=== PATIENT | female | born 1965 | race Caucasian/White ===

== ENCOUNTER 2024-03-01 20:43 | Inpatient (IN) | payer MEDICARE, MEDICAID, SELFPAY ==
[2024-03-01 21:00] VITALS: BP 119/67; PULSE 77; RESP 18; TEMP 36.9; O2SAT 99
[2024-03-01 21:49] VITALS: BMI 25.5
--- NOTE | 2024-03-02 01:34 | PC.ADMIT ---
Pt is a 58 yo female admitted to the unit [facility] [facility] [place] via interhospital transfer. Pt arrived on unit at 2100 on 03/01/24. Legal status: 12B. Pt medical issues are asthma, recent RSV infection (dx on 02/22/24) as well as a lingering cough. Pt declined the admission interview, wanting to sleep, so much of admission was done via crisis evaluation. Per crisis evaluation, Pt denies substance, etoh or tobacco use. Pt is a resident in a nursing home. Pt is resistant to change at baseline but is typically a model resident according to programmer developer, Astrid. Pt has a current Jim's order for Invega IM q month and Haldol IM q 2 wks. Recently has been exhibiting behaviors consistent with decompensation. According to Astrid, Pt had been at [facility] for 8 years prior to coming to the nursing home. Pt states that she going to live with her family in [place] however, Astrid states that she has noone in her family in [place]. Pt is paranoid and delusional. Pt was given Haldol 200mg IM on 03/01/2024 at 0930 at [facility]. Last Invega Sustenna IM is unclear but Astrid states that she will consult with RN at nursing home and find out the most recent date. Pt was having SOB and wheezing and brought to [facility] and dx with RSV on 02/22/24. Since return from [facility] to nursing home she has been noncompliant with her meds, both RSV meds and also her Haldol IM (Jim's med) stating, I want off all my meds and this is by [facility] [employer] ! Pt presents as apprehensive and suspicious at times, not responding to questions or very slow to respond. Pt wearing a hospital abby and appears disheveled. Provider promotions producer AA notified of admission and orders obtained. Placed on 5 minute safety checks. Pt reports feeling safe in hospital.
[2024-03-02 08:53] VITALS: RESP 20
--- NOTE | 2024-03-02 09:29 | PHA.MEDREC ---
Pharmacy Consult ? Medication Reconciliation Pharmacy has completed the medication reconciliation. PHARMACY HAS REVIEWED MED REC DONE BY NURSING. PER NOTE ON 03/02 BY RN ENOCH KING Pt was given Haldol 200mg IM on 03/01/2024 at 0930 at [facility]. Last Invega Sustenna IM is unclear but Astrid states that she will consult with RN at skilled nursing and find out the most recent date.
--- NOTE | 2024-03-02 10:41 | HO.PSYADMNOT ---
HPI Date of Service: 03/02/24 Chief Complaint: Psychosis Sources of Information: patient interviewed, chart reviewed and crisis/core team assessment reviewed HPI Subjective Notes: Oneal Warning and Section 12B Narrative: The patient is a 58-year-old female, resident of a snf who carries a diagnosis of schizophrenia on a community court order the for treatment over objection who had been noncompliant with medications for several days. The staff of the snf reported that she had been noncompliant and she had been refusing to take his medications. She was rushed to the emergency room where she receive her court order Haldol and we were waiting for information from the snf when was her last dose of Invega Sustenna. The patient was assessed by crisis and since she has psychotic symptoms elicited by disorganized behavior, paranoia, poor insight and auditory hallucinations was transferring to this facility for psychiatric stabilization. During the nursing assessment, the patient wanted to signed a 3 day notice but she refused to sign a conditional voluntary, very paranoid of signing any papers. The patient has refused her medications in the morning. On the intake interview, the patient refused to engage in the conversation she said that she is doing fine and she needs to go back to her place. No evidence of any insight about her condition. We will try to gather more collateral information since the patient had been a poor historian. Past Psychiatric History: The patient has an extensive history of schizophrenia with several admissions into the hospital, she has [facility] case managing services and she lives in a snf. She has a court order for treatment over objection in the community that has not been on recently and she had been noncompliant with the compensation. Medical Evaluation Reviewed: Hospitalist Vivian Pending [facility] Narrative: Asthma Family History: Refused to elaborate Social History: The patient lives in a snf, she has [facility] case managing services, she has a long history of mental illness. Substance History: Denies Trauma History: Refused to elaborate Diagnostics Vital Signs (24Hr): Vital Signs - 24 hr 03/01/24 21:00 03/02/24 08:53 Temperature 98.4 F Pulse Rate 77 Respiratory Rate 18 20 Blood Pressure 119/67 Pulse Oximetry 99 Oxygen Delivery Method Room Air BMI result Body Mass Index 25.5 Meds/Allergies Meds Home Medications ?Medication ?Instructions ?Recorded ?Confirmed ?Type albuterol sulfate 90 mcg/actuation 1 - 2 puff inhalation Q4-6H PRN 03/01/24 03/01/24 History aerosol inhaler dyspnea guaifenesin 200 mg tablet 400 mg PO Q6H PRN cough 03/01/24 03/01/24 History haloperidol decanoate 100 mg/mL 200 mg IM Q2W 03/01/24 03/01/24 History intramuscular solution paliperidone palmitate 234 mg/1.5 234 mg IM QMONTH 03/01/24 03/01/24 History mL intramuscular syringe (Invega Sustenna) Allergies Allergies Allergy/AdvReac Type Severity Reaction Status Date / Time lamotrigine [From Lamictal] Allergy Unknown Verified 03/01/24 21:10 prednisone Allergy Unknown Verified 03/01/24 21:49 Mental Status Exam Mental Status Exam Patient Appearance: Appropriate Patient Orientation: Person and Situation Level of Consciousness: Awake and Appropriate Patient Behavior: Guarded and Passive Mood Description: Withdrawn Affect Description: Blunted Patient Cognition Impaired: Yes Ability to Follow Directions: Good Speech Pattern: Clear Hallucinations: Auditory Delusions: Paranoid Ideation and Ideas of Reference Thought Process: Illogical, Distracted and Slowed Thinking Thought Content: positive for [place] and positive for Poverty of Content Judgement: Poor Assessment & Plan Assessment & Plan (1) Schizophrenia: Status: Acute Code(s): F20.9 - Schizophrenia, unspecified Plan The patient is a middle-aged female with a long history of schizophrenia, with several services provided by [facility] such as snf and other case managing services who had been noncompliant of her court-ordered treatment over objection. The patient had been noncompliant of medications for several days and she had decompensated we disorganized behavior, paranoia and inability to take care of herself. She was assessed by crisis and transferring to this facility for continuation of care. The patient is a very poor historian unable to provide more details. Plan 1. Gather collateral information. 2. The patient is on a Section 12 she has refused to sign a conditional voluntary. 3. 15 minute checks. 4. Continue with medications as per court order. 4. Hospitalist consult and reassessment with results Patient educated on: diagnosis, therapeutic strategies and medical condition Reason for continued inpatient stay Substantial Risk for: inability to function, rapid decompensation and med/psych decompensation Statement Statement: I have reviewed the history and physical and performed a pertinent examination on my patient. No changes have occurred unless specified. If the History and Physical was not performed prior to admission, the Hospitalist's service will be consulted for completing the admission physical. Time Spent With Patient Time: Total time managing care of this patient today __20__ minutes.
--- NOTE | 2024-03-02 11:33 | HO.PM.IMCN ---
History of Present Illness Data of Consult Service Date: 03/02/24 Primary Care Provider: Unknown Physician HPI Reason for consult: Admission H&P Pt is a 58-year-old female with a PMH significant for? who is admitted to M3 psychiatry unit for . Medical consult for admission H&P. ? Labs reviewed, significant for PMFSH Social History Household Members: Other Household Members Other:: Correction Housing: Other Housing Other:: Correction Do you presently have visiting nurse or other home services: Yes Patient Tobacco Use Status: Never used Tobacco Use of substances other than those prescribed or required for medical reasons: No Advance Directives: No Advance Directives Information Provided: No Do you have a plan to hurt others: No Plan Recently lost weight without trying: No How much weight loss: Not applicable Eating poorly because of decreased appetite: No Nutrition screen score: 0 Nutrition Risks: No Nutritional Risk Patient : No : No Meds Allergies Allergy/AdvReac Type Severity Reaction Status Date / Time lamotrigine [From Lamictal] Allergy Unknown Verified 03/01/24 21:10 prednisone Allergy Unknown Verified 03/01/24 21:49 Active Medications: Current Medications Acetaminophen (Acetaminophen 325 Mg Tablet) 650 mg PO Q6H PRN PRN Reason: Headache/Pain Mild Scale (1-3) Al Hydroxide/Mg Hydroxide (Magnesium Hydrox/Alum Hydrox 30 Ml Oral.Susp) 30 ml PO Q6H PRN PRN Reason: Heartburn/Nausea Albuterol Sulfate (Albuterol Sulfate 90 Mcg 8 Gm Inhaler) 1 - 2 puff INHALE Q4H PRN PRN Reason: dyspnea Guaifenesin (Guaifenesin 200 Mg/10 Ml 10 Ml Liquid) 10 ml PO Q6H PRN PRN Reason: cough Hydroxyzine HCl (Hydroxyzine Hcl 25 Mg Tablet) 25 mg PO Q6H PRN PRN Reason: Anxiety Magnesium Hydroxide (Milk Of Magnesia 30 Ml Oral.Susp) 30 ml PO DAILY PRN PRN Reason: Constipation Nicotine Polacrilex (Nicotine Polacrilex 2 Mg Gum) 2 mg BUCCAL Q2H PRN PRN Reason: Nicotine Cravings Trazodone HCl (Trazodone Hcl 50 Mg Tablet) 50 mg PO BEDTIME MRX1 PRN PRN Reason: Insomnia Home Medications ?Medication ?Instructions ?Recorded ?Confirmed ?Last Taken ?Type albuterol sulfate 90 mcg/actuation 1 - 2 puff inhalation Q4-6H PRN 03/01/24 03/01/24 Unknown History aerosol inhaler dyspnea guaifenesin 200 mg tablet 400 mg PO Q6H PRN cough 03/01/24 03/01/24 Unknown History haloperidol decanoate 100 mg/mL 200 mg IM Q2W 03/01/24 03/01/24 03/01/24 09:30 History intramuscular solution paliperidone palmitate 234 mg/1.5 234 mg IM QMONTH 03/01/24 03/01/24 Unknown History mL intramuscular syringe (Invega Sustenna) Physical Exam Vital Signs and Narrative: Vital Signs: Last Vital Signs Temp 98.4 F 03/01/24 21:00 Pulse 77 03/01/24 21:00 Resp 20 03/02/24 08:53 BP 119/67 03/01/24 21:00 Pulse Ox 99 03/01/24 21:00 O2 Del Method Room Air 03/01/24 21:00 BMI result Body Mass Index 25.5
--- NOTE | 2024-03-02 15:08 | HO.PM.IMCN ---
History of Present Illness Data of Consult Service Date: 03/02/24 Primary Care Provider: Unknown Physician HPI 58-year-old woman with a history depression admitted to for psychiatric care. Patient's vital signs are stable. Unfortunately patient did not want to speak to me. Review of Systems Review of Systems: Yes Other (Patient declined) [facility] Cognitive capacity: Patient declined to answer any questions Pertinent family history: Patient declined to answer any questions Social History Household Members: Other Household Members Other:: Detention Housing: Other Housing Other:: Detention Do you presently have visiting nurse or other home services: Yes Patient Tobacco Use Status: Never used Tobacco Use of substances other than those prescribed or required for medical reasons: No Currently Displaying Signs/Symptoms of Drug Intoxication Withdrawal: No Advance Directives: No Advance Directives Information Provided: No Do you have thoughts of harming others: None Do you have a plan to hurt others: No Plan Recently lost weight without trying: No How much weight loss: Not applicable Eating poorly because of decreased appetite: No Nutrition screen score: 0 Nutrition Risks: No Nutritional Risk Patient : No : No Meds Allergies Allergy/AdvReac Type Severity Reaction Status Date / Time lamotrigine [From Lamictal] Allergy Unknown Verified 03/01/24 21:10 prednisone Allergy Unknown Verified 03/01/24 21:49 Active Medications: Current Medications Acetaminophen (Acetaminophen 325 Mg Tablet) 650 mg PO Q6H PRN PRN Reason: Headache/Pain Mild Scale (1-3) Al Hydroxide/Mg Hydroxide (Magnesium Hydrox/Alum Hydrox 30 Ml Oral.Susp) 30 ml PO Q6H PRN PRN Reason: Heartburn/Nausea Albuterol Sulfate (Albuterol Sulfate 90 Mcg 8 Gm Inhaler) 1 - 2 puff INHALE Q4H PRN PRN Reason: dyspnea Guaifenesin (Guaifenesin 200 Mg/10 Ml 10 Ml Liquid) 10 ml PO Q6H PRN PRN Reason: cough Hydroxyzine HCl (Hydroxyzine Hcl 25 Mg Tablet) 25 mg PO Q6H PRN PRN Reason: Anxiety Magnesium Hydroxide (Milk Of Magnesia 30 Ml Oral.Susp) 30 ml PO DAILY PRN PRN Reason: Constipation Nicotine Polacrilex (Nicotine Polacrilex 2 Mg Gum) 2 mg BUCCAL Q2H PRN PRN Reason: Nicotine Cravings Trazodone HCl (Trazodone Hcl 50 Mg Tablet) 50 mg PO BEDTIME MRX1 PRN PRN Reason: Insomnia Home Medications ?Medication ?Instructions ?Recorded ?Confirmed ?Last Taken ?Type albuterol sulfate 90 mcg/actuation 1 - 2 puff inhalation Q4-6H PRN 03/01/24 03/01/24 Unknown History aerosol inhaler dyspnea guaifenesin 200 mg tablet 400 mg PO Q6H PRN cough 03/01/24 03/01/24 Unknown History haloperidol decanoate 100 mg/mL 200 mg IM Q2W 03/01/24 03/01/24 03/01/24 09:30 History intramuscular solution paliperidone palmitate 234 mg/1.5 234 mg IM QMONTH 03/01/24 03/01/24 Unknown History mL intramuscular syringe (Invega Sustenna) Physical Exam Vital Signs and Narrative: Vital Signs: Last Vital Signs Temp 98.4 F 03/01/24 21:00 Pulse 77 03/01/24 21:00 Resp 20 03/02/24 08:53 BP 119/67 03/01/24 21:00 Pulse Ox 99 03/01/24 21:00 O2 Del Method Room Air 03/01/24 21:00 BMI result Body Mass Index 25.5 Patient declined a physical evaluation Assessment and Plan (1) Schizophrenia: Status: Acute Plan 58-year-old woman admitted to for psychiatric care. Patient declined interview and stated ?I have nothing to say Mental health Management as per admitting team Presumed asthma May continue inhalers as needed
[2024-03-02 20:34] VITALS: BP 123/64; PULSE 94; RESP 16; TEMP 36.4; O2SAT 98
[2024-03-03 07:38] VITALS: BP 82/41; PULSE 94; RESP 16; TEMP 36.9; O2SAT 95
[2024-03-03] MEDS: Milk of Magnesia 30 ML ORAL.SUSP PO (12:49)
--- NOTE | 2024-03-03 13:58 | P.PNPSI_ITS ---
Subjective Subjective Date of Service: 03/03/24 Reason For Visit: Psychosis Subjective Notes: Section 12B Interim History: The nursing staff reported the patient refused all her p.o. medications. Apparently she received a course of prednisone a few days ago and apparently that trigger her psychotic break. She had been less paranoid in the morning but still internally preoccupied. On interview the patient refused to engage in conversation. Mental Status Exam Mental Status Exam Patient Appearance: Unkempt Patient Orientation: Person Level of Consciousness: Awake Patient Behavior: Guarded and Passive Mood Description: Withdrawn Affect Description: Constricted Patient Cognition Impaired: Yes Ability to Follow Directions: Good Speech Pattern: Clear Hallucinations: None Delusions: Not Present Thought Process: Distracted Thought Content: positive for [place] and positive for Poverty of Content Judgement: Poor Diagnostics Vital Signs (24Hr): Vital Signs - 24 hr 03/02/24 20:34 03/03/24 07:38 Temperature 97.6 F 98.4 F Pulse Rate 94 94 Respiratory Rate 16 16 Blood Pressure 123/64 82/41 L Pulse Oximetry 98 95 Oxygen Delivery Method Room Air Room Air BMI result Body Mass Index 25.5 Medications Medications Current Medications Acetaminophen (Acetaminophen 325 Mg Tablet) 650 mg PO Q6H PRN PRN Reason: Headache/Pain Mild Scale (1-3) Al Hydroxide/Mg Hydroxide (Magnesium Hydrox/Alum Hydrox 30 Ml Oral.Susp) 30 ml PO Q6H PRN PRN Reason: Heartburn/Nausea Albuterol Sulfate (Albuterol Sulfate 90 Mcg 8 Gm Inhaler) 1 - 2 puff INHALE Q4H PRN PRN Reason: dyspnea Guaifenesin (Guaifenesin 200 Mg/10 Ml 10 Ml Liquid) 10 ml PO Q6H PRN PRN Reason: cough Hydroxyzine HCl (Hydroxyzine Hcl 25 Mg Tablet) 25 mg PO Q6H PRN PRN Reason: Anxiety Magnesium Hydroxide (Milk Of Magnesia 30 Ml Oral.Susp) 30 ml PO DAILY PRN PRN Reason: Constipation Last Admin: 03/03/24 12:49 Dose: 30 ml Nicotine Polacrilex (Nicotine Polacrilex 2 Mg Gum) 2 mg BUCCAL Q2H PRN PRN Reason: Nicotine Cravings Trazodone HCl (Trazodone Hcl 50 Mg Tablet) 50 mg PO BEDTIME MRX1 PRN PRN Reason: Insomnia Allergies Allergies Allergy/AdvReac Type Severity Reaction Status Date / Time lamotrigine [From Lamictal] Allergy Unknown Verified 03/01/24 21:10 prednisone Allergy Unknown Verified 03/01/24 21:49 Assessment & Plan Assessment & Plan (1) Schizophrenia: Status: Acute Code(s): F20.9 - Schizophrenia, unspecified Plan 58-year-old woman admitted to for psychiatric care. Patient declined interview and stated ?I have nothing to say Mental health Management as per admitting team Presumed asthma May continue inhalers as needed Plan 1. Gather collateral information. 2. The patient received Haldol Decanoate in the emergency room. 3. We need to find out when she got her Invega Sustenna and continue accordingly. 4. Apparently the patient had a course of prednisone before becoming psychotic it is possible that the corticosteroids triggered the psychotic episode. Reason for continued inpatient stay Substantial Risk for: inability to function, rapid decompensation and med/psych decompensation Time Spent With Patient Time: Total time managing care of this patient today _20___ minutes.
[2024-03-03 20:00] VITALS: BP 123/66; PULSE 98; RESP 16; TEMP 36.8; O2SAT 97
[2024-03-04 07:35] VITALS: BP 113/63; PULSE 98; RESP 14; TEMP 36.6; O2SAT 93
--- NOTE | 2024-03-04 14:59 | HO.PSYCHPN ---
Subjective Subjective Date of Service: 03/04/24 Reason For Visit: Psychosis Subjective Notes: Section 12B Interim History: keeping to self. guarded. pt reports feeling okay today; pt stated, I'm not anxious or depressed. I felt like the pills I was getting for RSV were hurting me so they sent me here. I feel stable and want to go back [place] [facility] [place] . denies SI/HI/VH/AH. Per nursing, taking care of ADLs. 12B up on 03/07/24. Attending Groups: No Mental Status Exam Mental Status Exam Patient Appearance: Appropriate Patient Orientation: Person, Place, Time and Situation Level of Consciousness: Awake and Alert Patient Behavior: Guarded and Good Eye Contact Mood Description: Calm Affect Description: Calm Ability to Follow Directions: Good Speech Pattern: Clear Memory Description: Intact Hallucinations: None Delusions: Not Present Thought Process: Intact Thought Content: positive for Intact Diagnostics Vital Signs (24Hr): Vital Signs - 24 hr 03/03/24 20:00 03/04/24 07:35 Temperature 98.3 F 97.8 F Pulse Rate 98 98 Respiratory Rate 16 14 Blood Pressure 123/66 113/63 Pulse Oximetry 97 93 Oxygen Delivery Method Room Air Room Air BMI result Body Mass Index 25.5 Medications Medications Current Medications Acetaminophen (Acetaminophen 325 Mg Tablet) 650 mg PO Q6H PRN PRN Reason: Headache/Pain Mild Scale (1-3) Al Hydroxide/Mg Hydroxide (Magnesium Hydrox/Alum Hydrox 30 Ml Oral.Susp) 30 ml PO Q6H PRN PRN Reason: Heartburn/Nausea Albuterol Sulfate (Albuterol Sulfate 90 Mcg 8 Gm Inhaler) 1 - 2 puff INHALE Q4H PRN PRN Reason: dyspnea Guaifenesin (Guaifenesin 200 Mg/10 Ml 10 Ml Liquid) 10 ml PO Q6H PRN PRN Reason: cough Hydroxyzine HCl (Hydroxyzine Hcl 25 Mg Tablet) 25 mg PO Q6H PRN PRN Reason: Anxiety Magnesium Hydroxide (Milk Of Magnesia 30 Ml Oral.Susp) 30 ml PO DAILY PRN PRN Reason: Constipation Last Admin: 03/03/24 12:49 Dose: 30 ml Nicotine Polacrilex (Nicotine Polacrilex 2 Mg Gum) 2 mg BUCCAL Q2H PRN PRN Reason: Nicotine Cravings Trazodone HCl (Trazodone Hcl 50 Mg Tablet) 50 mg PO BEDTIME MRX1 PRN PRN Reason: Insomnia Allergies Allergies Allergy/AdvReac Type Severity Reaction Status Date / Time lamotrigine [From Lamictal] Allergy Unknown Verified 03/01/24 21:10 prednisone Allergy Unknown Verified 03/01/24 21:49 Assessment & Plan Assessment & Plan (1) Schizophrenia: Status: Acute Code(s): F20.9 - Schizophrenia, unspecified Plan 58-year-old woman admitted to for psychiatric care. Patient declined interview and stated ?I have nothing to say Mental health Management as per admitting team Presumed asthma May continue inhalers as needed Plan 1. Gather collateral information. 2. The patient received Haldol Decanoate in the emergency room. 3. We need to find out when she got her Invega Sustenna and continue accordingly. 4. Apparently the patient had a course of prednisone before becoming psychotic it is possible that the corticosteroids triggered the psychotic episode. 03/04: keeping to self. guarded. pt reports feeling okay today; pt stated, I'm not anxious or depressed. I felt like the pills I was getting for RSV were hurting me so they sent me here. I feel stable and want to go back [place] [facility] [place] . denies SI/HI/VH/AH. Per nursing, taking care of ADLs. 12B up on 03/07/24. Patient educated on: medication risk/benefits Reason for continued inpatient stay Substantial Risk for: med/psych decompensation Time Spent With Patient Time: Total time managing care of this patient today _20___ minutes.
[2024-03-04 20:00] VITALS: BP 122/70; PULSE 100; RESP 16; TEMP 36.4; O2SAT 96
[2024-03-05 07:49] VITALS: BP 130/53; PULSE 83; RESP 16; TEMP 36.8; O2SAT 97
--- NOTE | 2024-03-05 19:10 | HO.PSYCHPN ---
Subjective Subjective Date of Service: 03/05/24 Reason For Visit: Psychosis Interim History: Met with patient; discussed with team; reviewed chart pt says she's in good mood; denies any SI or HI or AVH. Discussed her medication which are CACERES; discussed dispo and pt Signed a CV, planning to stay a little longer and dc with her outpt team Mental Status Exam Mental Status Exam Narrative: Pt is alert and oriented; behavior is cooperative, friendly and calm; patient is not in distress; dressed in hospital attire with unkempt hair but adequate hygiene; mood is described as good and affect congruent; eye contact appropriate; Speech is normal rate, volume and prosody and not pressured; no psychomotor agitation/retardation present; thought process concrete but organized and goal directed; Thought content is on tx; otherwise pertinent to relevant topics and without any delusional content, paranoid ideations or grandiosity; denies any SI/HI. There is no evidence of perceptual disturbance. Patients insight and judgment appear intact. Diagnostics Vital Signs (24Hr): Vital Signs - 24 hr 03/04/24 20:00 03/05/24 07:49 Temperature 97.5 F 98.2 F Pulse Rate 100 83 Respiratory Rate 16 16 Blood Pressure 122/70 130/53 L Pulse Oximetry 96 97 Oxygen Delivery Method Room Air Room Air BMI result Body Mass Index 25.5 Labs 03/06/24 08:03 Medications Medications Current Medications Acetaminophen (Acetaminophen 325 Mg Tablet) 650 mg PO Q6H PRN PRN Reason: Headache/Pain Mild Scale (1-3) Al Hydroxide/Mg Hydroxide (Magnesium Hydrox/Alum Hydrox 30 Ml Oral.Susp) 30 ml PO Q6H PRN PRN Reason: Heartburn/Nausea Albuterol Sulfate (Albuterol Sulfate 90 Mcg 8 Gm Inhaler) 1 - 2 puff INHALE Q4H PRN PRN Reason: dyspnea Guaifenesin (Guaifenesin 200 Mg/10 Ml 10 Ml Liquid) 10 ml PO Q6H PRN PRN Reason: cough Hydroxyzine HCl (Hydroxyzine Hcl 25 Mg Tablet) 25 mg PO Q6H PRN PRN Reason: Anxiety Magnesium Hydroxide (Milk Of Magnesia 30 Ml Oral.Susp) 30 ml PO DAILY PRN PRN Reason: Constipation Last Admin: 03/03/24 12:49 Dose: 30 ml Nicotine Polacrilex (Nicotine Polacrilex 2 Mg Gum) 2 mg BUCCAL Q2H PRN PRN Reason: Nicotine Cravings Trazodone HCl (Trazodone Hcl 50 Mg Tablet) 50 mg PO BEDTIME MRX1 PRN PRN Reason: Insomnia Allergies Allergies Allergy/AdvReac Type Severity Reaction Status Date / Time lamotrigine [From Lamictal] Allergy Unknown Verified 03/01/24 21:10 prednisone Allergy Unknown Verified 03/01/24 21:49 Assessment & Plan Assessment & Plan (1) Schizophrenia: Status: Acute Code(s): F20.9 - Schizophrenia, unspecified Plan 58-year-old woman admitted to for psychiatric care. Patient declined interview and stated ?I have nothing to say Mental health Management as per admitting team Presumed asthma May continue inhalers as needed Plan 1. Gather collateral information. 2. The patient received Haldol Decanoate in the emergency room. 3. We need to find out when she got her Invega Sustenna and continue accordingly. 4. Apparently the patient had a course of prednisone before becoming psychotic it is possible that the corticosteroids triggered the psychotic episode. 03/04: keeping to self. guarded. pt reports feeling okay today; pt stated, I'm not anxious or depressed. I felt like the pills I was getting for RSV were hurting me so they sent me here. I feel stable and [facility] . denies SI/HI/VH/AH. Per nursing, taking care of ADLs. 12B up on 03/07/24. 03/05 signed CV; appears at baseline; dispo planning Patient educated on: diagnosis and medication risk/benefits Informed Consent: understands Reason for continued inpatient stay Substantial Risk for: stable for discharge Time Spent With Patient Time: Total time managing care of this patient today ____ minutes.
[2024-03-05 20:00] VITALS: BP 125/62; PULSE 83; RESP 16; TEMP 36.4; O2SAT 95
[2024-03-06 08:58] LABS: Cholesterol 111 mg/dL (<200); HDL Cholesterol 46 mg/dL (>40); LDL Cholesterol Calculated 54 mg/dL (<100); Triglycerides 57 mg/dL (<150)
[2024-03-06 08:59] LABS: Alanine Aminotransferase 16 U/L (0-31); Albumin Level 3.5 g/dL (3.5-5.0); Alkaline Phosphatase 66 U/L (39-117); Anion Gap 9 (12-20); Aspartate Amino Transferase 18 U/L (5-31); Bilirubin Total 0.1 mg/dL (0.0-1.0); Blood Urea Nitrogen 19 mg/dL (9-16); Calcium 9.4 mg/dL (8.4-10.2); Carbon Dioxide 30 mmol/L (22-29); Chloride 107 mmol/L (96-108); Creatinine Clr Calc Pharmacy 59.8; Estimated Glomerular Filt Rate 58; Glucose Random 105 mg/dL (60-115); Potassium 4.4 mmol/L (3.3-5.1); Sodium 142 mmol/L (135-145); Total Protein 7.6 g/dL (6.5-8.0)
[2024-03-06 20:00] VITALS: BP 132/69; PULSE 64; RESP 16; TEMP 36.8; O2SAT 97
--- NOTE | 2024-03-06 23:02 | HO.PSYCHPN ---
Subjective Subjective Date of Service: 03/06/24 Reason For Visit: Psychosis Interim History: met with patient; discussed with team pt remains stable; she says her mood is good and she's ready to return home. Discussed medications Haldol Dec and Invega Sustenna and when due. Mental Status Exam Mental Status Exam Narrative: Pt is alert and oriented; behavior is cooperative, friendly and calm; patient is not in distress; dressed in hospital attire with unkempt hair but adequate hygiene; mood is described as good and affect congruent; eye contact appropriate; Speech is normal rate, volume and prosody and not pressured; no psychomotor agitation/retardation present; thought process concrete but organized and goal directed; Thought content is on tx; otherwise pertinent to relevant topics and without any delusional content, paranoid ideations or grandiosity; denies any SI/HI. There is no evidence of perceptual disturbance. Patients insight and judgment are fair. Diagnostics Vital Signs (24Hr): Vital Signs - 24 hr 03/06/24 20:00 Temperature 98.3 F Pulse Rate 64 Respiratory Rate 16 Blood Pressure 132/69 Pulse Oximetry 97 Oxygen Delivery Method Room Air BMI result Body Mass Index 25.5 Labs 03/06/24 08:03 Labs: Laboratory Results - last 48 hr 03/06/24 03/06/24 08:02 08:03 Sodium 142 Potassium 4.4 Chloride 107 Carbon Dioxide 30 H Anion Gap 9 L BUN 19 H Creatinine 0.98 Estim Creat Clear Calc 59.8 Estimated GFR 58 Random Glucose 105 Calcium 9.4 Total Bilirubin 0.1 AST 18 ALT 16 Alkaline Phosphatase 66 Total Protein 7.6 Albumin 3.5 Triglycerides 57 Cholesterol 111 LDL Cholesterol, Calc 54 HDL Cholesterol 46 Medications Medications Current Medications Acetaminophen (Acetaminophen 325 Mg Tablet) 650 mg PO Q6H PRN PRN Reason: Headache/Pain Mild Scale (1-3) Al Hydroxide/Mg Hydroxide (Magnesium Hydrox/Alum Hydrox 30 Ml Oral.Susp) 30 ml PO Q6H PRN PRN Reason: Heartburn/Nausea Albuterol Sulfate (Albuterol Sulfate 90 Mcg 8 Gm Inhaler) 1 - 2 puff INHALE Q4H PRN PRN Reason: dyspnea Guaifenesin (Guaifenesin 200 Mg/10 Ml 10 Ml Liquid) 10 ml PO Q6H PRN PRN Reason: cough Hydroxyzine HCl (Hydroxyzine Hcl 25 Mg Tablet) 25 mg PO Q6H PRN PRN Reason: Anxiety Magnesium Hydroxide (Milk Of Magnesia 30 Ml Oral.Susp) 30 ml PO DAILY PRN PRN Reason: Constipation Last Admin: 03/03/24 12:49 Dose: 30 ml Nicotine Polacrilex (Nicotine Polacrilex 2 Mg Gum) 2 mg BUCCAL Q2H PRN PRN Reason: Nicotine Cravings Trazodone HCl (Trazodone Hcl 50 Mg Tablet) 50 mg PO BEDTIME MRX1 PRN PRN Reason: Insomnia Allergies Allergies Allergy/AdvReac Type Severity Reaction Status Date / Time lamotrigine [From Lamictal] Allergy Unknown Verified 03/01/24 21:10 prednisone Allergy Unknown Verified 03/01/24 21:49 Assessment & Plan Assessment & Plan (1) Schizophrenia: Status: Acute Code(s): F20.9 - Schizophrenia, unspecified Plan 58-year-old woman admitted to for psychiatric care. Patient declined interview and stated ?I have nothing to say Mental health Management as per admitting team Presumed asthma May continue inhalers as needed Plan 1. Gather collateral information. 2. The patient received Haldol Decanoate in the emergency room. 3. We need to find out when she got her Invega Sustenna and continue accordingly. 4. Apparently the patient had a course of prednisone before becoming psychotic it is possible that the corticosteroids triggered the psychotic episode. 03/04: keeping to self. guarded. pt reports feeling okay today; pt stated, I'm not anxious or depressed. I felt like the pills I was getting for RSV were hurting me so they sent me here. I feel stable and want to go back to my shelter . denies SI/HI/VH/AH. Per nursing, taking care of ADLs. 12B up on 03/07/24. 03/05 signed CV; appears at baseline; dispo planning 03/06 at baseline; preparing for discharge. Patient educated on: medication risk/benefits Informed Consent: understands Reason for continued inpatient stay Substantial Risk for: stable for discharge Time Spent With Patient Time: Total time managing care of this patient today ____ minutes.
[2024-03-07 07:25] VITALS: BP 104/57; PULSE 72; RESP 16; TEMP 36.9; O2SAT 97
--- NOTE | 2024-03-07 08:45 | PM.PSYDC ---
DS: Providers Provider Date of Service: 03/07/24 Date of admission: 03/01/24 20:43 Date of discharge: 03/07/24 Primary care physician: Unknown Physician Attending physician on admission: Keanu Rojas Consults: 03/01/24 21:15 Consult to Hospitalist Routine Comment: Consulting Provider: [facility] Reason For Exam: Direct admission from [facility] Attending physician on discharge: Justin Campuzano DS: Diagnosis Discharge Diagnosis (1) Schizophrenia: Status: Acute DS: Medications Discharge Medications Home Medications: Home Medications ?Medication ?Instructions ?Recorded ?Confirmed guaifenesin 200 mg tablet 400 mg PO Q6H PRN cough 03/01/24 03/01/24 haloperidol decanoate 100 mg/mL 200 mg IM Q2W 03/01/24 03/01/24 intramuscular solution paliperidone palmitate 234 mg/1.5 234 mg IM QMONTH 03/01/24 03/02/24 mL intramuscular syringe (Invega Sustenna) Previous Rx's ?Medication ?Instructions ?Recorded albuterol sulfate 90 mcg/actuation 1 - 2 puff inhalation Q4-6H PRN 03/07/24 aerosol inhaler dyspnea 30 days #6.7 grams Mental Status Exam Mental Status Exam Narrative: Pt is alert and oriented; behavior is cooperative, friendly and calm; patient is not in distress; dressed in hospital attire with unkempt hair but adequate hygiene; mood is described as good and affect congruent; eye contact appropriate; Speech is normal rate, volume and prosody and not pressured; no psychomotor agitation/retardation present; thought process concrete but organized and goal directed; Thought content is on tx; otherwise pertinent to relevant topics and without any delusional content, paranoid ideations or grandiosity; denies any SI/HI. There is no evidence of perceptual disturbance. Patients insight and judgment are fair. Data Data Completed and Pending Completed studies during hospitalization [Text1]: 03/06/24 03/06/24 08:02 08:03 Sodium 142 Potassium 4.4 Chloride 107 Carbon Dioxide 30 H Anion Gap 9 L BUN 19 H Creatinine 0.98 Estim Creat Clear Calc 59.8 Estimated GFR 58 Random Glucose 105 Calcium 9.4 Total Bilirubin 0.1 AST 18 ALT 16 Alkaline Phosphatase 66 Total Protein 7.6 Albumin 3.5 Triglycerides 57 Cholesterol 111 LDL Cholesterol, Calc 54 HDL Cholesterol 46 DS: Summary Hospital Course Hospital Course: HPI: The patient is a 58-year-old female, resident of a penitentiary who carries a diagnosis of schizophrenia on a community court order the for treatment over objection who had been noncompliant with medications for several days. The staff of the penitentiary reported that she had been noncompliant and she had been refusing to take his medications. However... It was later reported that patient was being treated for RSV in the community and received a course of prednisone a few days prior to admission that seem to be what caused this breakthrough psychotic episode. She was rushed to the emergency room where she receive her court order Haldol and we were waiting for information from the penitentiary when was her last dose of Invega Sustenna. The patient was assessed by crisis and since she has psychotic symptoms elicited by disorganized behavior, paranoia, poor insight and auditory hallucinations was transferring to this facility for psychiatric stabilization. The patient has an extensive history of schizophrenia with several admissions into the hospital, she has [facility] case managing services and she lives in a penitentiary. She has a court order for treatment. During the nursing assessment, the patient wanted to signed a 3 day notice but she refused to sign a conditional voluntary, very paranoid of signing any papers. The patient has refused her medications in the morning. Hospital course: On the intake interview, the patient refused to engage in the conversation she said that she is doing fine and she needs to go back to her place. No evidence of any insight about her condition. We will try to gather more collateral information since the patient had been a poor historian. Initially Patient remained isolative and mostly resistant to engagement and appeared internally preoccupied. However over subsequent days, she became less paranoid and a little more talkative. She eventually was willing to engage some, said that she was doing okay and denied any anxiety or depression. She explained that she felt the pill she was getting for RSV were hurting her so they sent her here (likely the prednisone). Patient warmed up and was much more able to engage. She said she felt stable and wanted to go back to her penitentiary; patient attending to ADLs. Her penitentiary staff remained involved and felt that patient had returned to baseline and was okay for discharge and return home. Dispo discussed and patient signed a CV anticipating discharge over the next few days. Patient denied any AVH or SI or HI and said she was feeling back to her regular self. Patient knows her medications well, doses and when they are due. She reports to board writer she is eating and sleeping well; her affect was noticeably brighter, smiling and appropriately interacting, saying she was feeling good. Patient had returned to baseline. She remained in good behavioral and impulse control throughout her time in the unit; she has extensive outpatient support and lives in a penitentiary and was appropriate to return to the community. Patient not in imminent risk of harm to self or others and request for discharge honored. Time spent discussing smoking cessation with patient: 3 to 10 minutes Status at Discharge Functional status at discharge: independent ambulation Overall status at discharge: patient is back to baseline Time Spent with Patient Time attestation: Total time managing care of this patient today 40___ minutes. Time spent: Greater than 30 minutes Specific discharge activities: Reviewing chart, discussed with pharmacy; Charting, discussed with team, prescriptions Discharge Plan Discharge Anticipated Discharge Date/Time: 03/07/24 11:30 Patient Disposition: Home, Self-Care Discharge Diagnosis: schizophrenia Referrals: Ramirez Larry ([facility]) [Other] - 03/11/24 10:40 am (In person appointment. ) Roxanna Garg ([facility]) [Other] - 03/14/24 11:00 am (In person appointment) Physician,Celso J [Primary Care Provider] - 1 Week Discharge Medications: Continued guaifenesin 200 mg tablet 400 mg PO Q6H PRN (Reason: cough) albuterol sulfate 90 mcg/actuation HFA aerosol inhaler 1 - 2 puff INHALATION Q4-6H PRN (Reason: dyspnea) 30 Days Qty: 6.7 1RF haloperidol decanoate 100 mg/mL solution 200 mg IM Q2W 14 Days Qty: 2 1RF Rx Instructions: last received 03/01/24; next dose due 03/15/24 Invega Sustenna 234 mg/1.5 mL syringe 234 mg IM QMONTH 28 Days Qty: 1.5 0RF Rx Instructions: last dose received 02/14/24; next dose due 03/13/24 Discharge Orders: Discharge Order (Routine); Ordered 03/07/24 Ordered By: Justin Campuzano Diet: Regular diet Activity on Discharge: As tolerated Stand Alone Forms: Patient Portal Discharge page Print Language: Singaporean Care Plan Goals: Maintain mood and safe behaviors Take medications as prescribed Practice coping skills Continue with outpatient providers and reach out to them as needed Health Concerns: Mood stability and behaviors Asthma Plan of Treatment: Follow up with your PCP, psychiatric provider and other outpatient providers regarding above concerns Take medications as prescribed Assessment: Risk assessment at time of discharge:? Patient was interviewed prior to discharge and found to be fully oriented and without any SI or HI. Patient has improved insight and judgment and wants to continue treatment. Patient is not in imminent risk of harm to self or others and has a safety plan that includes presenting to the closest ER or calling 911 if feeling unsafe.? Patient has been observed closely by nursing and unit staff throughout admission; patient has not engaged in any behaviors that suggest dangerousness to self or others and has demonstrated appropriate behaviors and impulse control
[2024-03-07 09:09] VITALS: BMI 57.6
== END 2024-03-07 11:03 | disposition home or self-care (01) | DRG 885 ==
PROVIDERS: Psychiatry & Neurology Psychiatry; Admitting Provider Psychiatry & Neurology Psychiatry; Visit Provider Psychiatry & Neurology Psychiatry
DX: F20.9 Schizophrenia, unspecified (principal); J45.909 Unspecified asthma, uncomplicated; Z91.148 Patient's other noncompliance with medication regimen for other reason; Z79.899 Other long term (current) drug therapy
CPT/HCPCS: 36415; 80053; 80061

== ENCOUNTER → 2024-03-01 20:43 | Outpatient (BNV) | payer MEDICARE, MEDICAID, SELFPAY | PROVIDERS: Admitting Provider Psychiatry & Neurology Psychiatry; Visit Provider Nurse Practitioner Acute Care | DX: F20.9 Schizophrenia, unspecified (principal) | CPT/HCPCS: 99222 ==

== ENCOUNTER → 2024-03-01 20:43 | Outpatient (BNV) | payer MEDICARE, MEDICAID, SELFPAY | PROVIDERS: Admitting Provider Psychiatry & Neurology Psychiatry; Visit Provider Psychiatry & Neurology Psychiatry | DX: F20.0 Paranoid schizophrenia (principal) | CPT/HCPCS: 90792; 99231; 99232; 99239 ==